=== PATIENT | female | born 1965 | race Caucasian/White ===

== ENCOUNTER 2022-05-22 14:09 | Emergency (ER) | payer BC ==
[~2022-05-22] VITALS: Ht 152.4 cm; Wt 86.2 kg
[2022-05-22 15:39] LABS: HEMOGLOBIN 8.2 gm/dl (12.3-15.3); RED BLOOD COUNT 3.67 M/UL (4.00-5.10); WHITE BLOOD COUNT 12.8 K/UL (4.5-11.0)
[2022-05-22 17:04] LABS: BUN/CREATININE RATIO 18 (0-10)
== END 2022-05-22 22:05 | disposition home or self-care (01) ==
LOC: ER1 14:09
PROVIDERS: Emergency Medicine
DX: D25.9 Leiomyoma of uterus, unspecified (principal); D64.9 Anemia, unspecified
CPT/HCPCS: 36430; 80053; 80307; 81001; 83690; 85025; 86850; 86900; 86901; 86920; 93005; 99284; J0456; J0696; J7030; P9016; Q9967

== ENCOUNTER → 2022-06-01 | Outpatient (CLI) | payer BC | LOC: RAD 14:56 | DX: C54.1 Malignant neoplasm of endometrium (principal) | CPT/HCPCS: 71046 ==